=== PATIENT | male | born 1945 | race Caucasian/White ===

== ENCOUNTER 2023-03-22 12:25 | Day surgery (SDC) | payer OTHER ==
[~2023-03-22] VITALS: Ht 172.7 cm; Wt 93.5 kg
[2023-03-22] MEDS ORDERED: ceFAZolin SOD 2 GM in IV 1 EA IV ONE (13:05)
[2023-03-22] MEDS ORDERED: OXYB-54 PO (13:25)
[2023-03-22] MEDS ORDERED: ATOR40TA75 PO (13:25)
[2023-03-22] MEDS ORDERED: DULO1CAP6 PO (13:25)
[2023-03-22] MEDS ORDERED: TAMS1CAP17 PO (13:25)
[2023-03-22] MEDS ORDERED: METO1TAB87 PO (13:25)
[2023-03-22] MEDS ORDERED: BACTDSTA PO (13:25)
[2023-03-22] MEDS ORDERED: VITMTA PO (13:25)
[2023-03-22] MEDS ORDERED: DILT180C95 PO (13:25)
[2023-03-22] MEDS ORDERED: VITA100093 PO (13:25)
[2023-03-22] MEDS ORDERED: COLA100C5 PO (13:25)
[2023-03-22] MEDS ORDERED: ALLO300T2 PO (13:25)
[2023-03-22] MEDS ORDERED: propofoL 200 MG/20 ML VIAL As Ordered ONE (13:54)
[2023-03-22] MEDS ORDERED: LIDOCAINE 2% 100MG/5ML SDV (FOR ANES.) As Ordered ONE (13:54)
[2023-03-22] MEDS ORDERED: ONDANSETRON 4MG 2ML VIAL As Ordered ONE (13:54)
[2023-03-22] MEDS ORDERED: ACETAMINOPHEN 1000MG 100ML IV BAG As Ordered ONE (13:54)
[2023-03-22] MEDS ORDERED: fentaNYL 100 MCG/2 ML INJECTION As Ordered ONE (13:57)
[2023-03-22] MEDS ORDERED: MIDAZOLAM INJ 2MG/2ML VIAL As Ordered ONE (13:57)
[2023-03-22] MEDS ORDERED: PHENYLephrine 500MCG 5ML (100MCG/ML) SYRINGE As Ordered ONE ×2 (14:26→15:46)
[2023-03-22] MEDS ORDERED: ePHEDrine SULFATE 25 MG/5 ML(5MG/ML) SYRINGE As Ordered ONE (14:26)
[2023-03-22] MEDS ORDERED: VASOPRESSIN INJ 20UNITS/ML 1ML VIAL As Ordered ONE ×2 (14:26→16:01)
[2023-03-22] MEDS ORDERED: ISOVUE-300 61% 100ML VIAL As Ordered ONE (14:35)
[2023-03-22] MEDS ORDERED: GLYCOPYRROLATE INJ 0.2 MG/ML 2 ML VIAL As Ordered ONE (14:40)
[2023-03-22] MEDS ORDERED: CIPR-249 PO (17:47)
[2023-03-22] MEDS ORDERED: ACETAMINOPHEN TAB 650MG DOSE (2X325MG) PO STA (19:52)
[2023-03-22] MEDS ORDERED: HOME MED LIST COMPLETE! XX SCH (20:15)
[2023-03-22] MEDS ORDERED: ACETAMINOPHEN TAB 650MG DOSE (2X325MG) PO PRN (20:20)
[2023-03-22 21:00] VITALS: BP 143/87; TEMP 96.4; O2SAT 94
[2023-03-22 21:15] VITALS: BP 123/76; TEMP 97.1; O2SAT 94
[2023-03-22 21:32] VITALS: BP 131/73; TEMP 97.3; O2SAT 93
[2023-03-22 22:00] VITALS: BP 126/81; TEMP 97.7; O2SAT 92
[2023-03-22 22:30] VITALS: BP 126/81; TEMP 97.7; O2SAT 92
[2023-03-22] MEDS: METOPROLOL TART 25 MG TABLET PO SCH (23:22)
[2023-03-22] MEDS: CIPROFLOXACIN 500MG TABLET PO SCH (23:22)
[2023-03-22 23:37] VITALS: BP 119/73; TEMP 97.8; O2SAT 93
[2023-03-23 00:42] VITALS: BP 128/77; TEMP 97; O2SAT 93
[2023-03-23 01:30] VITALS: BP 143/81; TEMP 97; O2SAT 92
[2023-03-23 04:16] VITALS: BP 115/72; TEMP 98; O2SAT 94
[2023-03-23] MEDS ORDERED: PERCOCET 5MG/325MG TAB PO PRN (04:50)
[2023-03-23] MEDS: CIPROFLOXACIN 500MG TABLET PO SCH (06:06)
[2023-03-23] MEDS ORDERED: OXYB-54 PO (08:22)
[2023-03-23 08:50] VITALS: BP 122/72; TEMP 97.7; O2SAT 96
[2023-03-23 08:51] VITALS: BP 122/72
[2023-03-23] MEDS: METOPROLOL TART 25 MG TABLET PO SCH (08:51)
[2023-03-23] MEDS ORDERED: oxyBUTYnin 5 MG TAB PO SCH (09:00)
[2023-03-23] MEDS ORDERED: oxyBUTYnin *DITROPAN XL* 5 MG TABCR PO SCH (09:00)
[2023-03-23] MEDS ORDERED: TAMSULOSIN 0.4 MG CAP PO SCH (09:00)
[2023-04-01 18:07] LABS: CA Oxalate Dihy 40 % (.); Ca Ox Monohydrate 60 % (.); Size 5x4 mm (.)
== END 2023-03-23 11:25 | disposition home or self-care (01) ==
LOC: M SDC 12:25 → M MS4PR 21:32 → M SDC 03-23 11:25
PROVIDERS: ATTEND Urology
DX: N13.2 Hydronephrosis with renal and ureteral calculous obstruction (principal); I10 Essential (primary) hypertension; J44.9 Chronic obstructive pulmonary disease, unspecified; E78.5 Hyperlipidemia, unspecified; Z79.899 Other long term (current) drug therapy
CPT/HCPCS: 52356; 76000; 82365; C1769; C2617; J0131; J0690; J1100; J2250; J2371; J2405; J2598; J3010; Q9967

== ENCOUNTER 2023-12-21 17:11 | Inpatient (IN) | payer OTHER ==
[~2023-12-21] VITALS: Ht 172.7 cm; Wt 94.6 kg
[~2023-12-21 17:11] MED LIST: ALLO300T2 PO; ATOR40TA75 PO; BACTDSTA PO; CIPR-249 PO; COLA100C5 PO; DILT180C95 PO; DULO1CAP6 PO; METO1TAB87 PO; OXYB-54 PO; TAMS1CAP17 PO; VITA100093 PO; VITMTA PO
[2023-12-21 18:54] LABS: BASO # 0.1 10^3/uL (0.0-0.2); BASO % 0.8 % (0.0-1.0); EOS # 0.3 10^3/uL (0.0-0.5); EOS % 3.5 % (0.0-3.0); HEMATOCRIT 38.6 % (42.0-52.0); LYMPH % 37.5 % (24.0-44.0); MEAN CORPUSCULAR HGB CONC 31.1 g/dl (32.0-36.5); MONO # 0.8 10^3/uL (0.0-0.8); MONO % 10.1 % (2.0-8.0); NEUTROPHILS # 3.8 10^3/uL (1.5-8.5); NEUTROPHILS % 47.7 % (36.0-66.0); PLATELET COUNT, AUTOMATED 412 10^3/uL (150-450); RED BLOOD COUNT 4.29 10^6/uL (4.30-6.10)
[2023-12-21 19:18] LABS: ALBUMIN 2.3 G/DL (3.2-5.2); ALKALINE PHOSPHATASE 165 U/L (46-116); ALT/SGPT 9 U/L (7.0-40); AST/SGOT 14 U/L (<34); BILIRUBIN,DIRECT 0.2 MG/DL (<0.4); BILIRUBIN,TOTAL 0.5 MG/DL (0.3-1.2); BLOOD UREA NITROGEN 13 MG/DL (9-23); CALCIUM LEVEL 9.5 MG/DL (8.3-10.6); CARBON DIOXIDE LEVEL 32 MMOL/L (20-31); CHLORIDE LEVEL 106 MMOL/L (98-107); CREATININE FOR GFR 1.03 MG/DL (0.70-1.30); GLOMERULAR FILTRATION RATE > 60.0 (>42); GLUCOSE, FASTING 98 MG/DL (74-106); POTASSIUM SERUM 4.3 MMOL/L (3.5-5.1); SODIUM LEVEL 141 MMOL/L (136-145); TOTAL PROTEIN 5.8 G/DL (5.7-8.2)
[2023-12-21 19:24] LABS: THYROID STIMULATING HORMONE 3.818 uIU/ML (0.55-4.78)
[2023-12-21 19:44] LABS: CPK CREATINE PHOSPHOKINASE 25 U/L (46-171)
[2023-12-21 19:45] LABS: CK-MB VALUE MASS < 1.0 NG/ML (<3.6)
[2023-12-21] MEDS: cefTRIAXone SOD 1 GM in D5W MINI-BAG PLUS 50 ML IV ONE (20:03)
[2023-12-21] MEDS ORDERED: MOM 30ML SUSPENSION UDC PO PRN (23:20)
[2023-12-22] VITALS (7 sets, daily range): BP systolic 108–129; BP diastolic 66–75; TEMP 97.2–97.9; O2SAT 91–96
[2023-12-22 01:53] LABS: VENOUS BASE EXCESS 7.4 (-2.0-2.0); VENOUS HCO3 31.3 MMOL/L (23.0-27.0); VENOUS O2 SATURATION 99.3 % (60.0-80.0); VENOUS PARTIAL PRESSURE CO2 41.2 mmHg (38.0-50.0); VENOUS PARTIAL PRESSURE O2 148.7 mmHg (30.0-50.0); VENOUS PH 7.498 UNITS (7.330-7.430); VENOUS STANDARD HCO3 31.3 MMOL/L; VENOUS TOTAL CO2 32.5 MMOL/L (24.0-28.0)
[2023-12-22 05:52] LABS: HEMATOCRIT 38.5 % (42.0-52.0); HEMOGLOBIN 11.8 g/dl (13.5-17.5); MEAN CORPUSCULAR HGB CONC 30.6 g/dl (32.0-36.5); MEAN CORPUSCULAR VOLUME 91.2 fl (80.0-96.0); PLATELET COUNT, AUTOMATED 421 10^3/uL (150-450); RED BLOOD COUNT 4.22 10^6/uL (4.30-6.10); WHITE BLOOD COUNT 8.9 10^3/uL (4.0-10.0)
[2023-12-22 06:26] LABS: ALBUMIN 2.2 G/DL (3.2-5.2); ALKALINE PHOSPHATASE 165 U/L (46-116); ALT/SGPT < 9 U/L (7.0-40); AST/SGOT 11 U/L (<34); BILIRUBIN,TOTAL 0.5 MG/DL (0.3-1.2); BLOOD UREA NITROGEN 12 MG/DL (9-23); CALCIUM LEVEL 9.8 MG/DL (8.3-10.6); CARBON DIOXIDE LEVEL 34 MMOL/L (20-31); CHLORIDE LEVEL 104 MMOL/L (98-107); CREATININE FOR GFR 1.09 MG/DL (0.70-1.30); GLOMERULAR FILTRATION RATE > 60.0 (>42); GLUCOSE, FASTING 85 MG/DL (74-106); POTASSIUM SERUM 4.5 MMOL/L (3.5-5.1); SODIUM LEVEL 141 MMOL/L (136-145); TOTAL PROTEIN 6.1 G/DL (5.7-8.2)
[2023-12-22] MEDS: cefTRIAXone SOD 1 GM in D5W MINI-BAG PLUS 50 ML IV SCH (07:51)
[2023-12-22] MEDS: ENOXAPARIN 40MG/0.4ML SYRINGE (J1650 PER 10MG) SC SCH (07:54)
[2023-12-22] MEDS ORDERED: DULO60CA35 PO (08:24)
[2023-12-22] MEDS ORDERED: ALBU8.5H INH (08:24)
[2023-12-22] MEDS ORDERED: MAGN400T2 PO (08:24)
[2023-12-22] MEDS ORDERED: FINA5TAB2 PO (08:24)
[2023-12-22] MEDS ORDERED: ACET650T3 PO (08:24)
[2023-12-22] MEDS ORDERED: PANT-23 PO (08:24)
[2023-12-22] MEDS ORDERED: OXYB-54 PO (08:24)
[2023-12-22] MEDS ORDERED: HOME MED LIST COMPLETE! XX SCH (08:30)
[2023-12-22] MEDS: METOPROLOL TART 25 MG TABLET PO SCH (09:21)
[2023-12-22] MEDS: dilTIAZem **CD** 180MG CAP PO SCH (09:21)
[2023-12-22 14:05] LABS: ERYTHROCYTE SEDIMENTATION RATE 97 mm/hr (0-20)
[2023-12-22 21:53] LABS: AMPHETAMINES LEVEL URINE NEGATIVE (NEGATIVE); BARBITURATES URINE NEGATIVE (NEGATIVE); BENZODIAZEPINES URINE NEGATIVE (NEGATIVE); CANNABINOIDS URINE NEGATIVE (NEGATIVE); COCAINE METABOLITE URINE NEGATIVE (NEGATIVE); METHADONE URINE NEGATIVE (NEGATIVE); OPIATES URINE NEGATIVE (NEGATIVE); PHENCYCLIDINE URINE NEGATIVE (NEGATIVE)
[2023-12-22] MEDS: TAMSULOSIN 0.4 MG CAP PO SCH (21:53)
[2023-12-23 01:12] VITALS: O2SAT 89
[2023-12-23 04:00] VITALS: BP 124/74; TEMP 97.7; O2SAT 91
[2023-12-23 06:25] LABS: BASO # 0.1 10^3/uL (0.0-0.2); BASO % 0.8 % (0.0-1.0); EOS # 0.3 10^3/uL (0.0-0.5); EOS % 3.3 % (0.0-3.0); HEMATOCRIT 36.8 % (42.0-52.0); HEMOGLOBIN 11.7 g/dl (13.5-17.5); LYMPH % 38.5 % (24.0-44.0); MEAN CORPUSCULAR HEMOGLOBIN 28.6 pg (27.0-33.0); MEAN CORPUSCULAR HGB CONC 31.8 g/dl (32.0-36.5); MONO # 0.9 10^3/uL (0.0-0.8); NEUTROPHILS # 3.6 10^3/uL (1.5-8.5); NEUTROPHILS % 46.1 % (36.0-66.0); PLATELET COUNT, AUTOMATED 355 10^3/uL (150-450); RED BLOOD COUNT 4.09 10^6/uL (4.30-6.10); WHITE BLOOD COUNT 7.8 10^3/uL (4.0-10.0)
[2023-12-23 06:51] LABS: ALBUMIN 2.2 G/DL (3.2-5.2); ALKALINE PHOSPHATASE 164 U/L (46-116); ALT/SGPT < 9 U/L (7.0-40); AST/SGOT 13 U/L (<34); BILIRUBIN,TOTAL 0.4 MG/DL (0.3-1.2); BLOOD UREA NITROGEN 13 MG/DL (9-23); CALCIUM LEVEL 9.4 MG/DL (8.3-10.6); CARBON DIOXIDE LEVEL 32 MMOL/L (20-31); CHLORIDE LEVEL 104 MMOL/L (98-107); CREATININE FOR GFR 1.02 MG/DL (0.70-1.30); GLOMERULAR FILTRATION RATE > 60.0 (>42); GLUCOSE, FASTING 85 MG/DL (74-106); POTASSIUM SERUM 4.3 MMOL/L (3.5-5.1); SODIUM LEVEL 139 MMOL/L (136-145)
[2023-12-23 12:00] VITALS: BP 112/66; TEMP 97.5; O2SAT 94
[2023-12-23 20:00] VITALS: BP 118/68; TEMP 98.8; O2SAT 93
[2023-12-23] MEDS: ACETAMINOPHEN TAB 650MG DOSE (2X325MG) PO PRN (20:00)
[2023-12-24 02:40] VITALS: O2SAT 91
[2023-12-24 04:00] VITALS: BP 127/69; TEMP 97.6; O2SAT 96
[2023-12-24 06:36] LABS: BASO # 0.1 10^3/uL (0.0-0.2); BASO % 0.7 % (0.0-1.0); EOS # 0.2 10^3/uL (0.0-0.5); EOS % 2.8 % (0.0-3.0); HEMATOCRIT 37.5 % (42.0-52.0); HEMOGLOBIN 11.9 g/dl (13.5-17.5); LYMPH # 3.4 10^3/uL (1.5-5.0); LYMPH % 39.3 % (24.0-44.0); MEAN CORPUSCULAR HEMOGLOBIN 28.8 pg (27.0-33.0); MEAN CORPUSCULAR HGB CONC 31.7 g/dl (32.0-36.5); MEAN CORPUSCULAR VOLUME 90.8 fl (80.0-96.0); MONO # 0.9 10^3/uL (0.0-0.8); MONO % 10.7 % (2.0-8.0); NEUTROPHILS % 46.3 % (36.0-66.0); PLATELET COUNT, AUTOMATED 328 10^3/uL (150-450); RED BLOOD COUNT 4.13 10^6/uL (4.30-6.10); WHITE BLOOD COUNT 8.6 10^3/uL (4.0-10.0)
[2023-12-24 06:57] LABS: BLOOD UREA NITROGEN 14 MG/DL (9-23); CALCIUM LEVEL 9.4 MG/DL (8.3-10.6); CARBON DIOXIDE LEVEL 31 MMOL/L (20-31); CHLORIDE LEVEL 105 MMOL/L (98-107); CREATININE FOR GFR 1.09 MG/DL (0.70-1.30); GLOMERULAR FILTRATION RATE > 60.0 (>42); GLUCOSE, FASTING 85 MG/DL (74-106); SODIUM LEVEL 141 MMOL/L (136-145)
[2023-12-24] MEDS: cefTRIAXone SOD 1 GM in D5W MINI-BAG PLUS 50 ML IV SCH (08:29)
[2023-12-24] MEDS: GASTROGRAFIN SOLUTION 30ML PO SCH (09:37)
[2023-12-24] MEDS ORDERED: ISOVUE-370 76% 100ML VIAL As Ordered ONE (11:13)
[2023-12-24 12:00] VITALS: BP 109/64; TEMP 98.2; O2SAT 90
[2023-12-24 20:46] VITALS: BP 108/66; TEMP 97.9; O2SAT 90
[2023-12-25 02:42] VITALS: BP 100/65; TEMP 97; O2SAT 91
[2023-12-25] MEDS: NS 1,000 ML IV SCH (03:10)
[2023-12-25 04:52] VITALS: O2SAT 90
[2023-12-25 04:59] VITALS: BP 121/74; TEMP 97.7; O2SAT 93
[2023-12-25 05:58] LABS: BASO # 0.1 10^3/uL (0.0-0.2); BASO % 0.9 % (0.0-1.0); EOS # 0.2 10^3/uL (0.0-0.5); HEMOGLOBIN 11.7 g/dl (13.5-17.5); LYMPH # 3.4 10^3/uL (1.5-5.0); LYMPH % 42.2 % (24.0-44.0); MEAN CORPUSCULAR HEMOGLOBIN 27.9 pg (27.0-33.0); MEAN CORPUSCULAR HGB CONC 30.8 g/dl (32.0-36.5); MEAN CORPUSCULAR VOLUME 90.7 fl (80.0-96.0); MONO # 0.8 10^3/uL (0.0-0.8); MONO % 9.6 % (2.0-8.0); NEUTROPHILS # 3.6 10^3/uL (1.5-8.5); NEUTROPHILS % 44.8 % (36.0-66.0); PLATELET COUNT, AUTOMATED 292 10^3/uL (150-450); RED BLOOD COUNT 4.19 10^6/uL (4.30-6.10); WHITE BLOOD COUNT 8.1 10^3/uL (4.0-10.0)
[2023-12-25 06:08] LABS: BLOOD UREA NITROGEN 14 MG/DL (9-23); CALCIUM LEVEL 8.9 MG/DL (8.3-10.6); CARBON DIOXIDE LEVEL 28 MMOL/L (20-31); CHLORIDE LEVEL 104 MMOL/L (98-107); CREATININE FOR GFR 1.04 MG/DL (0.70-1.30); GLOMERULAR FILTRATION RATE > 60.0 (>42); GLUCOSE, FASTING 85 MG/DL (74-106); POTASSIUM SERUM 3.9 MMOL/L (3.5-5.1); SODIUM LEVEL 138 MMOL/L (136-145)
[2023-12-25 12:00] VITALS: BP 110/80; TEMP 97.7; O2SAT 95
[2023-12-25] MEDS ORDERED: LORazepam 0.5 MG TAB PO ONE (16:45)
[2023-12-25] MEDS: LORazepam 2 MG/ML 1ML VIAL IV STA (16:57)
[2023-12-25 20:00] VITALS: BP 120/72; TEMP 98.1; O2SAT 95
[2023-12-26 04:04] VITALS: BP 116/72; TEMP 97.7; O2SAT 91
[2023-12-26 11:11] LABS: BASO # 0.1 10^3/uL (0.0-0.2); EOS # 0.2 10^3/uL (0.0-0.5); EOS % 1.8 % (0.0-3.0); HEMATOCRIT 35.8 % (42.0-52.0); HEMOGLOBIN 11.4 g/dl (13.5-17.5); LYMPH % 34.5 % (24.0-44.0); MEAN CORPUSCULAR HGB CONC 31.8 g/dl (32.0-36.5); MEAN CORPUSCULAR VOLUME 91.1 fl (80.0-96.0); NEUTROPHILS # 4.5 10^3/uL (1.5-8.5); NEUTROPHILS % 51.4 % (36.0-66.0); PLATELET COUNT, AUTOMATED 276 10^3/uL (150-450); RED BLOOD COUNT 3.93 10^6/uL (4.30-6.10); WHITE BLOOD COUNT 8.8 10^3/uL (4.0-10.0)
[2023-12-26 11:46] LABS: BLOOD UREA NITROGEN 14 MG/DL (9-23); CALCIUM LEVEL 8.8 MG/DL (8.3-10.6); CARBON DIOXIDE LEVEL 30 MMOL/L (20-31); CHLORIDE LEVEL 106 MMOL/L (98-107); CREATININE FOR GFR 1.02 MG/DL (0.70-1.30); GLOMERULAR FILTRATION RATE > 60.0 (>42); GLUCOSE, FASTING 86 MG/DL (74-106); POTASSIUM SERUM 3.8 MMOL/L (3.5-5.1); SODIUM LEVEL 139 MMOL/L (136-145)
[2023-12-26 12:00] VITALS: BP 117/68; TEMP 97.7; O2SAT 97
[2023-12-26 20:00] VITALS: BP 128/78; TEMP 98.2; O2SAT 93
[2023-12-27 04:00] VITALS: BP 126/81; TEMP 98.1; O2SAT 94
[2023-12-27 05:59] LABS: BASO # 0.1 10^3/uL (0.0-0.2); BASO % 0.8 % (0.0-1.0); EOS # 0.1 10^3/uL (0.0-0.5); EOS % 1.1 % (0.0-3.0); HEMATOCRIT 35.3 % (42.0-52.0); HEMOGLOBIN 11.3 g/dl (13.5-17.5); LYMPH % 31.3 % (24.0-44.0); MEAN CORPUSCULAR HEMOGLOBIN 28.7 pg (27.0-33.0); MEAN CORPUSCULAR VOLUME 89.6 fl (80.0-96.0); MONO # 1.3 10^3/uL (0.0-0.8); MONO % 13.3 % (2.0-8.0); NEUTROPHILS % 52.9 % (36.0-66.0); PLATELET COUNT, AUTOMATED 239 10^3/uL (150-450); RED BLOOD COUNT 3.94 10^6/uL (4.30-6.10); WHITE BLOOD COUNT 9.5 10^3/uL (4.0-10.0)
[2023-12-27 08:06] VITALS: BP 132/80
== END 2023-12-27 13:11 | disposition home health service (06) | DRG 71 ==
LOC: M ED 17:11 → M ED INP 23:20 → M MSPAV 12-22 00:28
PROVIDERS: ADMIT Student in an Organized Health Care Education/Training Program; ATTEND Internal Medicine
DX: G93.41 Metabolic encephalopathy (principal); N13.30 Unspecified hydronephrosis; N13.4 Hydroureter; I10 Essential (primary) hypertension; N40.0 Benign prostatic hyperplasia without lower urinary tract symptoms; E78.5 Hyperlipidemia, unspecified; J44.9 Chronic obstructive pulmonary disease, unspecified; M10.9 Gout, unspecified; M25.461 Effusion, right knee; I25.10 Atherosclerotic heart disease of native coronary artery without angina pectoris; F03.90 Unspecified dementia, unspecified severity, without behavioral disturbance, psychotic disturbance, mood disturbance, and anxiety; E78.00 Pure hypercholesterolemia, unspecified; G47.33 Obstructive sleep apnea (adult) (pediatric); Z96.643 Presence of artificial hip joint, bilateral; Z96.651 Presence of right artificial knee joint; Z87.891 Personal history of nicotine dependence; Z79.899 Other long term (current) drug therapy